=== PATIENT | male | born 1955 | race Caucasian/White ===

== ENCOUNTER 2022-06-16 10:06 | Emergency (ER) | payer MEDICARE, OTHER ==
[~2022-06-16] VITALS: Ht 165.1 cm; Wt 54.1 kg
[2022-06-16] MEDS ORDERED: NYST-38 PO (10:38)
[2022-06-16] MEDS ORDERED: FLUT1BLS IH (10:38)
[2022-06-16] MEDS ORDERED: ASPI81CH33 PO (10:38)
[2022-06-16] MEDS ORDERED: ATOR80TA59 PO (10:38)
[2022-06-16] MEDS ORDERED: VITMTA PO (10:38)
[2022-06-16] MEDS ORDERED: ALBU2.5V10 NEB (10:38)
[2022-06-16] MEDS ORDERED: VENTAER INH (10:38)
[2022-06-16] MEDS ORDERED: NS 1,000 ML IV ONE (11:25)
[2022-06-16 11:51] LABS: BASO # 0.1 10^3/uL (0.0-0.2); BASO % 0.3 % (0.0-1.0); EOS # 0.1 10^3/uL (0.0-0.5); EOS % 0.3 % (0.0-3.0); HEMOGLOBIN 14.1 g/dl (13.5-17.5); LYMPH % 6.1 % (24.0-44.0); MEAN CORPUSCULAR HEMOGLOBIN 30.7 pg (27.0-33.0); MEAN CORPUSCULAR HGB CONC 32.8 g/dl (32.0-36.5); MEAN CORPUSCULAR VOLUME 93.5 fl (80.0-96.0); MONO # 0.8 10^3/uL (0.0-0.8); MONO % 5.1 % (2.0-8.0); NEUTROPHILS # 14.2 10^3/uL (1.5-8.5); NEUTROPHILS % 87.8 % (36.0-66.0); PLATELET COUNT, AUTOMATED 169 10^3/uL (150-450); WHITE BLOOD COUNT 16.1 10^3/uL (4.0-10.0)
[2022-06-16] MEDS ORDERED: KETOROLAC 30 MG/ML 1ML VIAL IV ONE (12:00)
[2022-06-16] MEDS ORDERED: ACETAMINOPHEN TAB 650MG DOSE (2X325MG) PO ONE (12:00)
[2022-06-16 12:27] LABS: RSV AMPLIFICATION NEGATIVE (NEGATIVE)
[2022-06-16 12:56] LABS: ALBUMIN 3.6 GM/DL (3.2-5.2); BILIRUBIN,DIRECT 0.2 MG/DL (0.0-0.2); BILIRUBIN,TOTAL 1.2 MG/DL (0.2-1.0); TOTAL PROTEIN 6.8 GM/DL (6.4-8.2)
[2022-06-16] MEDS ORDERED: ISOVUE-370 76% 100ML VIAL As Ordered ONE (13:09)
[2022-06-16] MEDS ORDERED: CIPR-249 PO (14:58)
[2022-06-16] MEDS ORDERED: METR-265 PO (14:58)
[2022-06-16 15:18] VITALS: BP 148/91
== END 2022-06-16 15:20 | disposition home or self-care (01) ==
LOC: M ED 10:06
DX: R10.9 Unspecified abdominal pain (principal); R11.2 Nausea with vomiting, unspecified; E78.5 Hyperlipidemia, unspecified; J44.9 Chronic obstructive pulmonary disease, unspecified; K57.92 Diverticulitis of intestine, part unspecified, without perforation or abscess without bleeding; Z87.820 Personal history of traumatic brain injury; Z85.46 Personal history of malignant neoplasm of prostate; Z79.82 Long term (current) use of aspirin; Z79.899 Other long term (current) drug therapy; Z91.013 Allergy to seafood
CPT/HCPCS: 71046; 74177; 80047; 80076; 81000; 81002; 81015; 82150; 83605; 83690; 85025; 87040; 87486; 87581; 87631; 87633; 87798; 96361; 96374; 99284; Q9967